=== PATIENT | female | born 1975 | race African-American/Black ===

== ENCOUNTER 2019-02-13 22:14 | Emergency (ER) | payer BC ==
[~2019-02-13] VITALS: Ht 167.6 cm; Wt 102.1 kg
[~2019-02-13 22:14] MED LIST: ALLERGY MEDICIN25 MG; BACTRIM DS TAB1 EACH PO; FLEXERIL PO; HYDROCODONE-AP1 EAC6 PO; KEFLEX500 MG; LEVOTHYROXIN0.025 MG PO; MIRALAX255 GM PO; MOBIC15 MG PO; MULTIVITAMINS1 EAC7; NORCO 5-325 TA1 EACH PO; ORPHENADRINE C100 M2 PO; TRINATE TABLET1 TAB PO
[2019-02-13 22:44] VITALS: BP 141/74
[2019-02-13] MEDS ORDERED: NAPROSYN500 MG PO (23:39)
[2019-02-13] MEDS ORDERED: TRAMADOL 50 MG50 MG PO (23:39)
== END 2019-02-14 06:05 | disposition home or self-care (01) ==
LOC: ER 22:14
DX: S93.491A Sprain of other ligament of right ankle, initial encounter (principal); G89.29 Other chronic pain; M54.9 Dorsalgia, unspecified; Z90.49 Acquired absence of other specified parts of digestive tract; Z90.710 Acquired absence of both cervix and uterus; Z88.0 Allergy status to penicillin; Z88.6 Allergy status to analgesic agent; Z77.22 Contact with and (suspected) exposure to environmental tobacco smoke (acute) (chronic); Z88.1 Allergy status to other antibiotic agents; W17.81XA Fall down embankment (hill), initial encounter; Y93.01 Activity, walking, marching and hiking; Y92.828 Other wilderness area as the place of occurrence of the external cause; Y99.8 Other external cause status